=== PATIENT | female | born 1940 | race Caucasian/White ===

== ENCOUNTER 2022-05-21 05:23 | Inpatient (IN) | payer MEDICARE, OTHER ==
[2022-05-21] VITALS (13 sets, daily range): BP systolic 163–207; BP diastolic 67–109
[~2022-05-21] VITALS: Ht 165.1 cm; Wt 74.4 kg
[~2022-05-21 05:23] MED LIST: BISA-151 PO; BISA10SU11 PR; CLON0.1T2 PO; ESCI-8 PO; LACT10SO62 PO; METR500 PO; NIFE10CA50 PO; PANT-31 PO; PERCT PO; SEVE0.8P6 PO; TRAM50TA4 PO
[2022-05-21] MEDS ORDERED: MAG HYDROX/AL HYDROX/SIMETH 30 ML SUSP UDCUP PO ONE (06:15)
[2022-05-21] MEDS ORDERED: ONDANSETRON HCL 4 MG/2 ML VIAL IVP ONE (06:15)
[2022-05-21] MEDS ORDERED: FAMOTIDINE 10 MG/ML 2 ML VIAL IVP ONE (06:15)
[2022-05-21] MEDS ORDERED: ACETAMINOPHEN 500 MG TABLET PO ONE (06:15)
[2022-05-21] MEDS ORDERED: SODIUM CHLORIDE 0.9% 100 ML ONE (06:29)
[2022-05-21] MEDS ORDERED: IOHEXOL 350 MG/ML 75 ML VIAL ONE (06:30)
[2022-05-21 06:36] LABS: CALCIUM, TOTAL 10.1 mg/dL (8.8-10.5); CREATININE 7.69 mg/dL (0.60-1.30); POTASSIUM 4.1 mmol/L (3.5-5.1)
[2022-05-21 06:44] LABS: ALBUMIN 3.1 g/dL (3.4-5.0); BILIRUBIN,TOTAL 0.5 mg/dL (0.1-1.0); TOTAL PROTEIN, SERUM 7.4 g/dL (6.4-8.2)
[2022-05-21 06:45] LABS: INR 1.3 (0.9-1.1); PROTHROMBIN TIME 13.5 SEC (9.4-11.6)
[2022-05-21 07:08] LABS: BASOPHILS % (AUTO) 0.4 % (0.0-2.0); EOSINOPHILS % (AUTO) 0.7 % (1.0-6.0); HEMATOCRIT 28.6 % (36-46); HEMOGLOBIN 8.9 g/dL (12.0-16.0); LYMPHOCYTES # (AUTO) 0.7 K/uL (1.0-4.8); MEAN CORPUSCULAR HEMOGLOBIN 23.5 pg (26.0-34.0); MEAN CORPUSCULAR HGB CONC 31.1 G/dL (31.0-37.0); MEAN CORPUSCULAR VOLUME 76 fL (80-100); MONOCYTES # (AUTO) 0.9 K/uL (0.1-1.0); MONOCYTES % (AUTO) 12.8 % (2.0-9.0); NEUTROPHILS # (AUTO) 5.3 K/uL (1.8-7.7); NEUTROPHILS % (AUTO) 76.1 % (40.0-70.0); PLATELET COUNT (AUTO) 328 K/uL (150-450); RED BLOOD CELL COUNT(AUTO) 3.78 MIL/uL (4.00-5.20); RED CELL DISTRIBUTION WIDTH 19.2 % (11.5-14.5)
[2022-05-21 07:34] LABS: COVID AG,FIA SOURCE NASOPHARYNGEAL
[2022-05-21] MEDS ORDERED: HydrALAZINE HCL 20 MG/ML VIAL IVP ONE ×2 (08:00→09:00)
[2022-05-21] MEDS ORDERED: CIPROFLOXACIN 400 MG/D5% WATER 200 ML IV ONE (09:30)
[2022-05-21] MEDS ORDERED: MetroNIDAZOLE 500 MG/NACL 100 ML IV ONE (09:30)
[2022-05-21] MEDS ORDERED: ACETAMINOPHEN 325 MG TABLET PO PRN (10:30)
[2022-05-21] MEDS ORDERED: SODIUM CHLORIDE 0.9% 2,000 ML ONE (11:26)
[2022-05-21] MEDS ORDERED: SODIUM CHLORIDE 0.9% 250 ML IV ONE (15:45)
[2022-05-21] MEDS: MetroNIDAZOLE 500 MG TABLET PO SCH ×2 (16:00→23:43)
[2022-05-21] MEDS: HEPARIN SODIUM,PORCINE 5,000 UNITS/ML VIAL SQ SCH ×2 (16:18→23:43)
[2022-05-21] MEDS: LACTOBAC ACID/BULG/BIFID/THERM TABLET PO SCH ×2 (16:19→20:51)
[2022-05-21] MEDS: VITAMIN B COMP/VIT C/FOLIC ACID CAPSULE PO SCH (16:30)
[2022-05-21] MEDS: CloNIDine HCL 0.1 MG TABLET PO PRN ×2 (16:30→23:43)
[2022-05-21 17:46] LABS: GLUCOMETER DEV NAME(LOC) 5S.2B; GLUCOSE,POINT OF CARE 83 MG/DL (70-110)
[2022-05-21] MEDS: DOCUSATE SODIUM 100 MG CAPSULE PO SCH (20:51)
[2022-05-21] MEDS: CloNIDine HCL 0.1 MG TABLET PO SCH (20:51)
[2022-05-21 22:26] LABS: GLUCOMETER DEV NAME(LOC) 5N.1C; GLUCOSE,POINT OF CARE 111 MG/DL (70-110)
[2022-05-21] MEDS: OxyCODONE HCL/ACETAMINOPHEN 5-325 MG TABLET PO PRN (22:54)
[2022-05-22 04:50] VITALS: BP 190/92
[2022-05-22] MEDS: AmLODIPine BESYLATE 10 MG TABLET PO SCH (06:10)
[2022-05-22] MEDS ORDERED: HydrALAZINE HCL 20 MG/ML VIAL IVP ONE (06:15)
[2022-05-22 07:39] VITALS: BP 160/68
[2022-05-22] MEDS: MetroNIDAZOLE 500 MG TABLET PO SCH ×2 (08:00→16:00)
[2022-05-22] MEDS: LACTOBAC ACID/BULG/BIFID/THERM TABLET PO SCH ×2 (09:00→20:57)
[2022-05-22] MEDS: VITAMIN B COMP/VIT C/FOLIC ACID CAPSULE PO SCH (09:00)
[2022-05-22] MEDS: FAMOTIDINE 20 MG TABLET PO SCH (09:00)
[2022-05-22] MEDS: DOCUSATE SODIUM 100 MG CAPSULE PO SCH ×2 (09:00→20:57)
[2022-05-22] MEDS: CIPROFLOXACIN HCL 250 MG TABLET PO SCH (09:00)
[2022-05-22] MEDS: CloNIDine HCL 0.1 MG TABLET PO SCH ×2 (09:36→20:57)
[2022-05-22] MEDS: HEPARIN SODIUM,PORCINE 5,000 UNITS/ML VIAL SQ SCH ×2 (09:41→16:00)
[2022-05-22] MEDS: EPOETIN ALFA 10,000 UNITS/ML VIAL SQ SCH (09:41)
[2022-05-22] MEDS: MORPHINE SULFATE 2 MG/ML SYRINGE IVP PRN (09:42)
[2022-05-22 10:36] VITALS: BP 126/56
[2022-05-22] MEDS ORDERED: CIPR250T6 PO (13:26)
[2022-05-22] MEDS ORDERED: METR500 PO (13:26)
[2022-05-22] MEDS ORDERED: AMLO-258 PO (13:26)
[2022-05-22 15:17] VITALS: BP 148/67
[2022-05-22 20:29] VITALS: BP 160/92
[2022-05-23] VITALS (14 sets, daily range): BP systolic 112–190; BP diastolic 55–88
[2022-05-23] MEDS: CloNIDine HCL 0.1 MG TABLET PO PRN (00:08)
[2022-05-23] MEDS ORDERED: AmLODIPine BESYLATE 10 MG TABLET PO ONE (05:45)
[2022-05-23] MEDS: MetroNIDAZOLE 500 MG TABLET PO SCH ×4 (08:00→23:38)
[2022-05-23] MEDS: CloNIDine HCL 0.1 MG TABLET PO SCH ×2 (08:53→21:31)
[2022-05-23] MEDS: AmLODIPine BESYLATE 10 MG TABLET PO SCH (08:53)
[2022-05-23] MEDS: HEPARIN SODIUM,PORCINE 5,000 UNITS/ML VIAL SQ SCH ×4 (08:57→23:38)
[2022-05-23] MEDS: DOCUSATE SODIUM 100 MG CAPSULE PO SCH ×2 (08:58→21:31)
[2022-05-23] MEDS: VITAMIN B COMP/VIT C/FOLIC ACID CAPSULE PO SCH (08:58)
[2022-05-23] MEDS: CIPROFLOXACIN HCL 250 MG TABLET PO SCH (08:58)
[2022-05-23] MEDS: FAMOTIDINE 20 MG TABLET PO SCH (08:58)
[2022-05-23] MEDS: LACTOBAC ACID/BULG/BIFID/THERM TABLET PO SCH ×2 (08:58→21:31)
[2022-05-23] MEDS: MORPHINE SULFATE 2 MG/ML SYRINGE IVP PRN ×2 (10:52→20:14)
[2022-05-24 00:03] VITALS: BP 123/71
[2022-05-24] MEDS: MORPHINE SULFATE 2 MG/ML SYRINGE IVP PRN ×3 (01:22→20:06)
[2022-05-24] MEDS ORDERED: MELATONIN 3 MG TABLET PO PRN (04:45)
[2022-05-24 04:46] VITALS: BP 140/70
[2022-05-24 07:14] VITALS: BP 130/58
[2022-05-24] MEDS: HEPARIN SODIUM,PORCINE 5,000 UNITS/ML VIAL SQ SCH ×3 (08:00→23:12)
[2022-05-24] MEDS: FAMOTIDINE 20 MG TABLET PO SCH (08:49)
[2022-05-24] MEDS: CloNIDine HCL 0.1 MG TABLET PO SCH ×2 (08:50→21:00)
[2022-05-24] MEDS: MetroNIDAZOLE 500 MG TABLET PO SCH ×3 (08:50→23:11)
[2022-05-24] MEDS: VITAMIN B COMP/VIT C/FOLIC ACID CAPSULE PO SCH (08:51)
[2022-05-24] MEDS: DOCUSATE SODIUM 100 MG CAPSULE PO SCH ×2 (08:51→20:21)
[2022-05-24] MEDS: AmLODIPine BESYLATE 10 MG TABLET PO SCH (08:51)
[2022-05-24] MEDS: CIPROFLOXACIN HCL 250 MG TABLET PO SCH (08:51)
[2022-05-24] MEDS: LACTOBAC ACID/BULG/BIFID/THERM TABLET PO SCH ×2 (08:52→20:21)
[2022-05-24] MEDS: EPOETIN ALFA 10,000 UNITS/ML VIAL SQ SCH (08:52)
[2022-05-24 11:12] VITALS: BP 126/74
[2022-05-24 16:10] VITALS: BP 123/76
[2022-05-24] MEDS: OxyCODONE HCL/ACETAMINOPHEN 5-325 MG TABLET PO PRN ×2 (18:58→23:11)
[2022-05-24] MEDS: ONDANSETRON HCL 4 MG/2 ML VIAL IVP PRN (19:09)
[2022-05-24 20:35] VITALS: BP 123/72
[2022-05-25 00:43] VITALS: BP 139/61
[2022-05-25] MEDS: MORPHINE SULFATE 2 MG/ML SYRINGE IVP PRN (03:35)
[2022-05-25 04:12] VITALS: BP 149/88
[2022-05-25] MEDS: OxyCODONE HCL/ACETAMINOPHEN 5-325 MG TABLET PO PRN ×2 (04:13→08:46)
[2022-05-25 07:37] VITALS: BP 135/50
[2022-05-25] MEDS: LACTOBAC ACID/BULG/BIFID/THERM TABLET PO SCH (08:46)
[2022-05-25] MEDS: MetroNIDAZOLE 500 MG TABLET PO SCH (08:47)
[2022-05-25] MEDS: VITAMIN B COMP/VIT C/FOLIC ACID CAPSULE PO SCH (08:47)
[2022-05-25] MEDS: AmLODIPine BESYLATE 10 MG TABLET PO SCH (08:47)
[2022-05-25] MEDS: HEPARIN SODIUM,PORCINE 5,000 UNITS/ML VIAL SQ SCH (08:48)
[2022-05-25] MEDS: FAMOTIDINE 20 MG TABLET PO SCH (08:49)
[2022-05-25] MEDS: CloNIDine HCL 0.1 MG TABLET PO SCH (08:50)
[2022-05-25] MEDS: CIPROFLOXACIN HCL 250 MG TABLET PO SCH (08:50)
[2022-05-25] MEDS: DOCUSATE SODIUM 100 MG CAPSULE PO SCH (08:50)
[2022-05-25] MEDS: ONDANSETRON HCL 4 MG/2 ML VIAL IVP PRN (08:54)
[2022-05-25 09:56] VITALS: BP 155/78
[2022-05-25 11:30] VITALS: BP 164/80
[2022-05-25 20:21] LABS: GLUCOMETER DEV NAME(LOC) 5S.2B; GLUCOSE,POINT OF CARE 119 MG/DL (70-110)
== END 2022-05-25 13:15 | DRG 947 ==
LOC: EMS 05:27 → 5S 10:17
PROVIDERS: ADMIT Internal Medicine; ATTEND Internal Medicine
PROC: 5A1D70Z Performance of Urinary Filtration, Intermittent, Less than 6 Hours Per Day (ICD-10-PCS; principal; 2022-05-23)
DX: G89.3 Neoplasm related pain (acute) (chronic) (principal); N18.6 End stage renal disease; K57.92 Diverticulitis of intestine, part unspecified, without perforation or abscess without bleeding; I12.0 Hypertensive chronic kidney disease with stage 5 chronic kidney disease or end stage renal disease; C85.13 Unspecified B-cell lymphoma, intra-abdominal lymph nodes; E11.22 Type 2 diabetes mellitus with diabetic chronic kidney disease; Z20.822 Contact with and (suspected) exposure to COVID-19; D63.8 Anemia in other chronic diseases classified elsewhere; Z99.2 Dependence on renal dialysis; Z88.2 Allergy status to sulfonamides
CPT/HCPCS: 71045; 74177; 80053; 82550; 82962; 83690; 83880; 84484; 85025; 85610; 85730; 87081; 87340; 90935; 93005; 99285; G0378; J0360; J0744; J0885; J1644; J2270; J2405; J3490; J7030; J7050; Q9967; 36415-L1; 36415-TC